=== PATIENT | female | born 1970 | race Caucasian/White ===

== ENCOUNTER → 2016-11-30 | Outpatient (CLI) | payer BC ==
--- NOTE | 2016-12-03 09:44 | MM ---
Reason for exam: follow-up at short interval from prior study. Last mammogram was performed 1 year and 3 months ago. History: Family history of breast cancer in maternal grandmother. Physical Findings: Nurse did not find any significant physical abnormalities on exam. MG 3D Diag Mammo W/Cad SAÚL Bilateral CC and MLO view(s) were taken. Prior study comparison: September 05, 2015, bilateral MG 3d screening mammo w/cad. December 10, 2011, bilateral digital screening mammo w/CAD. There are scattered fibroglandular densities. No significant new findings when compared with previous films. These results were verbally communicated with the patient and result sheet given to the patient on 11/30/16. ASSESSMENT: Benign, BI-RAD 2 RECOMMENDATION: Routine screening mammogram of both breasts in 1 year.
--- NOTE | 2016-12-03 09:47 | USB ---
Reason for exam: follow-up at short interval from prior study. History: Family history of breast cancer in maternal grandmother. US Breast RT Right breast ultrasound includes all four quadrants, the retroareolar region and axilla. Finding demonstrate a 13 x 7mm side by side cyst at 3 o'clock and a 6mm oval, cystic lesion at 8 o'clock. These results were verbally communicated with the patient and result sheet given to the patient on 11/30/16. ASSESSMENT: Benign, BI-RAD 2 RECOMMENDATION: Routine screening mammogram of both breasts in 1 year.
== END | disposition home or self-care (01) ==
LOC: RADMAMWWP 15:17
PROVIDERS: ATTEND Nurse Practitioner
DX: R92.8 Other abnormal and inconclusive findings on diagnostic imaging of breast (principal)
CPT/HCPCS: 76641; G0204; G0279

== ENCOUNTER → 2018-07-25 | Outpatient (CLI) | payer BC ==
--- NOTE | 2018-07-28 12:36 | MM ---
Reason for exam: screening (asymptomatic). Last mammogram was performed 1 year and 8 months ago. History: Family history of breast cancer in maternal grandmother. Physical Findings: A clinical breast exam by your physician is recommended on an annual basis and results should be correlated with mammographic findings. MG 3D Screening Mammo W/Cad Bilateral CC and MLO view(s) were taken. Prior study comparison: November 30, 2016, bilateral MG 3d diag mammo w/cad SAÚL. September 05, 2015, bilateral MG 3d screening mammo w/cad. There are scattered fibroglandular densities. There is increased size of the lobulated lower inner quadrant focal asymmetry at middle depth creating distortion on 3D imaging, this now measures 3.9 x 5.0cm. No suspicious abnormality on left breast. ASSESSMENT: Incomplete: need additional imaging evaluation, BI-RAD 0 RECOMMENDATION: Ultrasound core biopsy and ultrasound of the right breast. [facility] will attempt to contact patient to return for ultrasound.
== END | disposition home or self-care (01) ==
LOC: RADMAMWWP 12:37
PROVIDERS: ATTEND Family Medicine
DX: Z12.31 Encounter for screening mammogram for malignant neoplasm of breast (principal)
CPT/HCPCS: 77063; 77067

== ENCOUNTER → 2018-08-06 | Outpatient (CLI) | payer BC ==
--- NOTE | 2018-08-06 08:00 | USB ---
Reason for exam: additional evaluation requested from abnormal screening. History: Family history of breast cancer in maternal grandmother. Physical Findings: Nurse Summary: all soft, nodular, movable, prominent nodularity 3 o'clock right breast (nurse ts). US Breast Workup RT Right complete breast ultrasound includes all four quadrants, the retroareolar region and axilla. Finding demonstrates a 1.7 x 0.7 x 0.7cm cystic cluster at 3 o'clock, 4.6cm dense tissue with cysts and a 0.7 x 0.6 x 0.2cm oval, cystic lesion at 3 o'clock. These results were verbally communicated with the patient and result sheet given to the patient on 08/06/18. ASSESSMENT: Benign, BI-RAD 2 RECOMMENDATION: Return to routine screening mammogram schedule for both breasts.
== END | disposition home or self-care (01) ==
LOC: RADUSWWP 06:54
PROVIDERS: ATTEND Family Medicine
DX: R92.8 Other abnormal and inconclusive findings on diagnostic imaging of breast (principal)

== ENCOUNTER → 2019-02-16 | Outpatient (CLI) | payer BC ==
--- NOTE | 2019-02-16 08:27 | MR ---
EXAMINATION TYPE: MR brain and iac wo/w con DATE OF EXAM: 02/16/2019 COMPARISON: NONE HISTORY: Dizziness. TECHNIQUE: Multiplanar, multisequence images of the brain and brainstem including internal auditory canals are a ll performed without and with IV contrast, utilizing 10 mL intravenous Gadavist . FINDINGS: Diffusion weighted images demonstrate no evidence of a recent infarct or other diffusion ab normality. There is no extra-axial fluid collection or significant white matter signal abnormality. The ventricular system and cisternal spaces are normal in size and appearance. The brain volume is age appropriate. Asymmetry to the ventricular system with slight right-sided prominence and slight mi dline shift is presumed congenital. Correlation with old outside CT or MRI would be beneficial to con firm. Midline structures demonstrate normal morphology. The craniocervical junction appears within normal limits. Post contrast images demonstrate no abnormal enhancement. The dural venous sinuses appear pa tent. Artifact distortion at level of the globes is seen. Visualized portion of paranasal sinuses are clear. No suspicious opacification of mastoid air cells is present bilaterally. Vestibulocochlear complexes are symmetric and felt within normal limits. No suspicious enhancing mass is present. IMPRESSION: No suspicious finding is seen to account for patient's symptoms of dizziness.
== END | disposition home or self-care (01) ==
LOC: RADMRIMAIN 06:26
PROVIDERS: ATTEND Otolaryngology
DX: R42 Dizziness and giddiness (principal); H90.42 Sensorineural hearing loss, unilateral, left ear, with unrestricted hearing on the contralateral side
CPT/HCPCS: 70553; A9585

== ENCOUNTER → 2020-09-06 | Outpatient (CLI) | payer BC ==
--- NOTE | 2020-09-07 15:06 | MM ---
Reason for exam: screening (asymptomatic). Last mammogram was performed 2 years and 1 month ago. History: Family history of breast cancer in maternal grandmother. Physical Findings: A clinical breast exam by your physician is recommended on an annual basis and results should be correlated with mammographic findings. MG 3D Screening Mammo W/Cad Bilateral CC and MLO view(s) were taken. Prior study comparison: July 25, 2018, bilateral MG 3d screening mammo w/cad. November 30, 2016, bilateral MG 3d diag mammo w/cad SAÚL. The breast tissue is heterogeneously dense. This may lower the sensitivity of mammography. There is chronic nodularity bilaterally. Asymmetric breast tissue right anterior medially, stable. There is no discrete abnormality. ASSESSMENT: Benign, BI-RAD 2 RECOMMENDATION: Routine screening mammogram of both breasts in 1 year.
== END | disposition home or self-care (01) ==
LOC: RADMAMWWP 16:21
PROVIDERS: ATTEND Family Medicine
DX: Z12.31 Encounter for screening mammogram for malignant neoplasm of breast (principal)
CPT/HCPCS: 77063; 77067

== ENCOUNTER → 2022-09-12 | Outpatient (CLI) | payer OTHER ==
--- NOTE | 2022-09-13 20:07 | MM ---
Reason for Exam: Screening (asymptomatic). Last mammogram was performed 2 year(s) and 0 month(s) ago. Patient History: Menarche at age 13. First Full-Term at age 19. Postmenopausal. Maternal grandmother had breast cancer, age 74. Risk Values: Bee 5 year model risk: 0.9%. NCI Lifetime model risk: 7.1%. Prior Study Comparison: 11/30/2016 Bilateral Diagnostic Mammogram, [facility]. 07/25/2018 Bilateral Screening Mammogram, [facility]. 09/06/2020 Bilateral Screening Mammogram, [facility]. Tissue Density: The breast tissue is heterogeneously dense. This may lower the sensitivity of mammography. Findings: Analyzed By CAD. Unchanged global asymmetry medial right breast. No significant change from prior exams. Overall Assessment: Benign, BI-RAD 2 Management: Screening Mammogram of both breasts in 1 year. 1. Patient should continue monthly self breast exams. 2. A clinical breast exam by your physician is recommended on an annual basis. 3. This exam should not preclude additional follow-up of suspicious palpable abnormalities. Electronically signed and approved by: Maddie Mott M.D. Radiologist
== END | disposition home or self-care (01) ==
LOC: RADMAMWWP 15:51
PROVIDERS: ATTEND Family Medicine
DX: Z12.31 Encounter for screening mammogram for malignant neoplasm of breast (principal); Z78.0 Asymptomatic menopausal state; Z80.3 Family history of malignant neoplasm of breast
CPT/HCPCS: 77063; 77067

== ENCOUNTER 2022-11-21 13:23 | Day surgery (SDC) | payer OTHER ==
[2022-11-16 16:22] VITALS: BMI 41.5
[~2022-11-21 13:23] MED LIST: ACETAMINOPHEN TAB 500 MG TAB PO PRN; DEXAMETHASONE SOD PHOSPHATE 10 MG/ML 1 ML VIAL IV PRN; DOCUSATE 100 MG CAP PO PRN; FAMOTIDINE 20 MG/2 ML VIAL IVP PRN; KETOROLAC 15 MG/ML 1 ML VIAL IVP PRN; ONDANSETRON 4 MG/2 ML VIAL IVP PRN; TRANEXAMIC ACID IN NACL,ISO-OS 1,000 MG in SALINE 1 100ML.BAG IV PRN; TRANEXAMIC ACID IN NACL,ISO-OS 1,000 MG in SALINE 1 100ML.BAG IVPB PRN; oxyCODONE ER 10 MG TAB.ER.12H PO PRN
[2022-11-21] MEDS ORDERED: LIDOCAINE 1% (10MG/ML) FOR IV START INTRADERMA PRN (13:34)
[2022-11-21] MEDS ORDERED: HYDROmorphone 0.5 MG/0.5 ML SYRINGE IVP PRN ×2 (13:34→18:14)
[2022-11-21] MEDS: LACTATED RINGERS 1,000 ML IV SCH (13:58)
[2022-11-21] MEDS ORDERED: SCOPOLAMINE 1 MG/72 HR PATCH TRANSDERM ONE (14:16)
[2022-11-21] MEDS ORDERED: MIDAZOLAM 2 MG/2 ML VIAL IVP ONE (14:23)
[2022-11-21] MEDS ORDERED: PROPOFOL 10 MG/ML 20 ML VIAL IV ONE (15:46)
[2022-11-21] MEDS ORDERED: MIDAZOLAM 2 MG/2 ML VIAL ONE (15:46)
[2022-11-21] MEDS ORDERED: HYDROmorphone (PF) 1 MG/ML ONE (15:46)
[2022-11-21] MEDS ORDERED: LIDOCAINE 2% INJ 20 MG/ML (2 ML VIAL) ONE (15:46)
[2022-11-21] MEDS ORDERED: DEXAMETHASONE SOD PHOSPHATE 4 MG/ML 1 ML VIAL ONE (15:46)
[2022-11-21] MEDS ORDERED: ROCURONIUM 10 MG/ML (5 ML VIAL) IV ONE (15:46)
[2022-11-21] MEDS ORDERED: ROPIVACAINE 5 MG/ML 30 ML VIAL ONE (15:46)
[2022-11-21] MEDS ORDERED: GLYCOPYRROLATE 0.2 MG/ML 2 ML VIAL ONE (15:46)
[2022-11-21] MEDS ORDERED: NEOSTIGMINE 1 MG/ML 10 ML VIAL ONE (15:46)
[2022-11-21] MEDS ORDERED: SUCCINYLCHOLINE CHLORIDE 200 MG/10 ML VIAL IV ONE (15:46)
[2022-11-21] MEDS ORDERED: KETAMINE 10 MG/ML 20 ML VIAL ONE (15:46)
[2022-11-21] MEDS ORDERED: fentaNYL (PF) 50 MCG/ML 2 ML AMP ONE (15:46)
[2022-11-21] MEDS ORDERED: TRANEXAMIC ACID IN NACL,ISO-OS 1,000 MG/100 ML BAG ONE (15:46)
[2022-11-21] MEDS: ROPIVACAINE/EPI/CLONIDINE/KET 50 ML SYRINGE MISCELLANE PRN ×3 (16:29→17:32)
--- NOTE | 2022-11-21 16:44 | P.ANPRN ---
Procedure Note - Anesthesia - Nerve Block Performed Right Adductor Canal Single Time Out Performed: Yes Date of Procedure: 11/21/22 Procedure Start Time: 14:43 Procedure Stop Time: 15:00 Location of Patient: PreOp Indication: Acute Post-Operative Pain, Requested by Surgeon Sedation Type: Sedate with meaningful contact maintained Preparation: Sterile Prep, Sterile Dressing Position: Supine Catheter: None Needle Types: Facet Needle Gauge: 20 Ultrasound used to visualize needle placement: Yes Ultrasound used to observe medication spread: Yes Injectate: 0.5% Ropivacaine (see comment for volume) (20 ml + 2 mg Decadron) Blood Aspirated: No Pain Paresthesia on Injection Noted: No Resistance on Injection: Normal Image Stored and Saved: Yes Events: Uneventful and Well Tolerated Right iPack Single Time Out Performed: Yes Date of Procedure: 11/21/22 Procedure Start Time: 15:01 Procedure Stop Time: 15:10 Location of Patient: PreOp Indication: Acute Post-Operative Pain, Requested by Surgeon Sedation Type: Sedate with meaningful contact maintained Preparation: Sterile Prep, Sterile Dressing Position: Left Lateral Catheter: None Needle Types: Facet Needle Gauge: 20 Ultrasound used to visualize needle placement: Yes Ultrasound used to observe medication spread: Yes Injectate: 0.5% Ropivacaine (see comment for volume) (10 ml + decadron 2 mg) Blood Aspirated: No Pain Paresthesia on Injection Noted: No Resistance on Injection: Normal Image Stored and Saved: Yes Events: Uneventful and Well Tolerated
[2022-11-21] MEDS ORDERED: LACTATED RINGERS 1,000 ML IV ONE (17:05)
[2022-11-21] MEDS ORDERED: HYDROcodone/APAP 5-325MG 1 EACH TAB PO PRN (18:14)
[2022-11-21] MEDS ORDERED: NALOXONE 0.4 MG/ML 1 ML VIAL IV PRN (18:14)
[2022-11-21] MEDS ORDERED: MAGNESIUM HYDROXIDE 2,400 MG/10 ML CUP PO PRN (18:14)
[2022-11-21] MEDS ORDERED: NA PHOS,M-B/NA PHOS,DI-BA 133 ML ENEMA RECTAL PRN (18:14)
[2022-11-21] MEDS ORDERED: HYDROmorphone 1 MG/ML 1 ML SYRINGE IVP PRN (18:14)
[2022-11-21] MEDS ORDERED: ONDANSETRON 4 MG/2 ML VIAL IVP PRN (18:14)
--- NOTE | 2022-11-21 18:16 | P.OP ---
Date of Procedure: 11/21/22 Preoperative Diagnosis: 1. Severe right knee osteoarthritis 2. BMI 42.6 Postoperative Diagnosis: Same Procedure(s) Performed: Right total knee arthroplasty Implants: 1. [place] Tri[employer]lon CR Femur Size #2 2. [employer] [place] Tibial Base Size #3 3. [place] Tri[employer]lon CS poly Size #9 4. [place] Tri[employer]lon all poly patella, Size #29 Anesthesia: MARY, regional Surgeon: Benji Aquino Transportation Worker #1: Keyonna Dimas Estimated Blood Loss (ml): 100 IV fluids (ml): 1,200 Pathology: none sent Condition: stable Disposition: PACU Indications for Procedure: I met with the patient preoperatively in the office setting and discussed treatment of their symptomatic knee arthritis. They failed a long course of nonsurgical treatment and elected to proceed with an elective total knee replacement. I discussed the potential risks and complications at length and gave them ample time to ask questions. Risks discussed included: risks from anesthesia, superficial site surgical infection, acute and/or chronic periprosthetic joint infection, delayed wound healing, drainage, wound necrosis, instability, stiffness, stiffness requiring manipulation and/or revision surgery, damage to local blood vessels or nerves, aseptic loosening of the implants, extensor mechanism issues including disruption, patellar maltracking, avascular necrosis etc., continued or worsened knee pain, generalized dissatisfaction with surgical outcome, need for revision surgery, an inability to regain preinjury level of function, DVT, PE, other medical complications, and possibly loss of life or limb. The patient voiced their understanding that while these are the most common complications other less common complications are possible. They provided both their verbal and written consent to go forward with surgery. Description of Procedure: The patient was identified in preoperative holding and the correct operative extremity was verified and marked with a marker. I reviewed the consent form with the patient at length. All of their questions were answered. The patient was given a block by anesthesia. They were then brought back to the operating room. They were transferred onto the operating room table where a general anesthetic, preoperative antibiotics, and tranexamic acid were administered by anesthesia. A tourniquet was applied to the proximal aspect of the operative extremity. The contralateral extremity was padded under the heel and secured to the operating room table with a nonsterile blue towel and tape. The ipsilateral arm was carefully draped across the patient's chest and secured with a pillow and foam. A post was applied over the lateral aspect of the ipsilateral thigh and a bolster was placed under the ipsilateral foot. I verified that the operative extremity was stable and the knee was flexed to 90. The operative extremity was then placed in a leg harry, nonsterile drapes were applied, and the extremity was prepped and draped sterilely in the standard sterile fashion. Prior to starting surgery timeout was performed identifying the correct patient, operative extremity, and procedure. The leg was then elevated, exsanguinated with an Esmarch bandage, and the tourniquet was inflated. An anterior midline incision was made sharply with a scalpel. Once I had dissected deep to the superficial fascial layer medial and lateral flaps were elevated. A medial parapatellar arthrotomy was created. Upon opening the knee joint there were diffuse arthritic changes in all 3 compartments. The anterior horn of the medial meniscus were sharply released and a medial release was performed around the posterior medial corner of the knee to facilitate retractor placement. The fat pad was excised with electrocautery. The patella was found to be severely arthritic and a provisional cut was made with a sagittal saw to facilitate mobilization of the extensor mechanism during the procedure. Remnants of the ACL and PCL were then excised from the notch. 4 mm pins were then placed within the incision in the medial distal femur and proximal tibia. Arrays were applied to the pins and I verified they were completely tightened. The knee was then registered with the Light Magic robot and manipulations in implant position were made to balance the knee and opitmize implant position. Using the Raphael robotic saw all cuts were made in accordance with our plan. After all bony fragments had been removed the cuts were verified with the planar probe. The tibia was then subluxed forward and sized. The knee was brought into flexion and a lamina electrical project manager was placed to allow removal of the meniscal remnants both medially and laterally as well as posterior osteophytes. Local anesthetic was then infiltrated around the joint capsule. Trial implants were then placed within the knee. Range of motion and collateral ligament tension was then evaluated. Adjustments in implant size and position were then made accordingly. Once the knee was felt to be appropriately balanced the Raphael pins were removed. The patella was then recut, sized, and punched. A trial patellar button was then placed. With the trial components in place, the patella tracked midline. The femur was then drilled and the trial component removed. The trial tibial component was then appropriately rotated, pinned, and prepared for the keel. All trial components were then removed from the knee. The knee was thoroughly irrigated with pulsatile lavage. Cement was prepared via vacuum mixing in a bowl on the back table. I then hand pressurized cement into the femur and tibia and placed the implants beginning with the tibial base tray and poly liner, femoral component, and finally the patellar button. All extruded cement was removed including from the pin sites. Once the cement had hardened the knee was evaluated one final time with the final polyethylene liner in place. The knee had full extension and flexion and felt stable to varus and valgus stress throughout the arc of motion. The tourniquet was released and with the tourniquet down the patella tracked midline. All bleeders were controlled with electrocautery. The knee was then soaked for 3 minutes with a dilute Betadine soak. The knee was thoroughly irrigated using 3 L of sterile saline and pulsatile lavage. The extensor mechanism was then reapproximated using pop off Vicryl sutures followed by a running barbed suture. The knee was then closed in layers with a 0 strata fix for the deep fascial layer, 2-0 strata fix for the superficial subcutaneous layer and Monocryl and Steri-Strips for the skin. A sterile dressing was applied. I verified that all instrument, sponge, and sharp counts were correct. The patient was then transferred off the operating room table, extubated, and brought to recovery having tolerated the procedure well. Keyonna Dimas NP was required as a skilled orthodontist assistant due to the complexity of the procedure for patient positioning, draping, retraction, placement of sawant rdware, and closure of wound. PLAN: The patient can weight-bear as tolerated on the operative extremity. DVT prophylaxis with aspirin 81 mg twice a day based on preoperative risk stratification. Follow-up in the office in 2 weeks for wound check and x-rays of the knee including an AP and lateral.
--- NOTE | 2022-11-21 19:01 | XR ---
EXAMINATION TYPE: XR knee limited RT DATE OF EXAM: 11/21/2022 6:46 PM INDICATION: Patient age:Female; 52 years old; Reason for study: Evaluation for Postop abnormality and alignment; COMPARISON: None. TECHNIQUE: The Right knee(s) was examined in Frontal, lateral projections. FINDINGS: Status post total knee arthroplasty changes with hardware in appropriate alignment and in tact. No evidence of fracture. Subcutaneous lucencies and lucencies within the joint consistent with surgical changes. IMPRESSION: Status post total knee arthroplasty changes with hardware intact and appropriate alignment. No fractu res identified.
[2022-11-21] MEDS: ASPIRIN 81 MG PO SCH (21:41)
[2022-11-21] MEDS: SENNOSIDES-DOCUSATE SODIUM 1 EACH TAB PO SCH (21:41)
[2022-11-21] MEDS: HYDROmorphone 0.5 MG/0.5 ML SYRINGE IVP PRN (21:42)
[2022-11-21] MEDS: HYDROcodone/APAP 5-325MG 1 EACH TAB PO PRN (23:35)
[2022-11-21] MEDS: POLYMYXIN B-TRIMETHOPRIM SULF (10,000-1) OPHTH DROPS 10 ML BTL RIGHT EYE SCH (23:36)
[2022-11-22] MEDS: POLYMYXIN B-TRIMETHOPRIM SULF (10,000-1) OPHTH DROPS 10 ML BTL RIGHT EYE SCH ×5 (03:29→21:03)
[2022-11-22] MEDS: HYDROmorphone 0.5 MG/0.5 ML SYRINGE IVP PRN ×4 (03:40→21:03)
[2022-11-22] MEDS: HYDROcodone/APAP 5-325MG 1 EACH TAB PO PRN ×3 (06:54→22:08)
[2022-11-22] MEDS: ASPIRIN 81 MG PO SCH ×2 (09:00→21:03)
--- NOTE | 2022-11-22 09:37 | P.DS ---
Providers Expected date of discharge: 11/22/22 Attending physician: Benji Aquino Consults: 11/21/22 18:14 Consult Physician Routine Consulting Provider: Matt Kruger Consult Reason/Comments: medical management Do you want consulting provider notified?: Yes Primary care physician: Valerie Young [facility] Course: This is a 52-year-old female who has been followed in our office by Dr. Aquino for continued complaints of right knee pain due to right knee osteoarthritis. Treatment options were discussed, and patient elected to undergo a right total knee arthroplasty. Patient was seen pre-operatively by Dr. Young and cleared for surgery. Patient underwent a right total knee arthroplasty on 11/21/[address] Aquino. The procedure was performed without complication or sequelae. The patient is doing fairly well postoperatively. Vital signs and labs are stable on postoperative day #1. Patient was examined bedside this morning with Dr. Aquino. Patient states she is overall doing very well and the pain in the right knee is well-controlled. She has been ambulating with a walker with minimal assistance. Patient will work with physical therapy prior to discharge. Patient is comfortable being discharged home today. Patient has no new complaints this morning. On examination, the patient is sitting up in bed in no apparent distress. She is alert and orientated 3. On inspection of the right knee, there is Opsite surgical dressing that is saturated in blood. Dressing is removed and reveals a well-approximated incision. Patient has good strength and ROM of the right ankle and toes. Motor and sensory function is intact of the right lower extremity. The dorsalis pedis pulse is easily palpable, the right lower extremity is warm and well perfused with brisk capillary refill. Calf is soft and non-tender to palpation. Due to drainage and saturated surgical dressing, we elected to place a Prevena wound vac bedside this morning. Patient tolerated this dressing change well. Patient is discharged home with home health care today in good condition, pending medical clearance. Patient will follow-up with Dr. Aquino in the office in 1 week for wound vac removal. Please see med rec for accurate list of discharge medication. Plan - Discharge Summary Discharge Rx Participant: Yes New Discharge Prescriptions: New Aspirin 81 mg PO BID 30 Days #60 tab Docusate [Colace] 100 mg PO BID #60 capsule HYDROcodone/APAP 5-325MG [[place] 5-325] 1 - 2 tab PO Q6HR PRN 7 Days #32 tab PRN Reason: Pain Omeprazole 40 mg PO DAILY 30 Days #30 cap Diclofenac Sodium [Voltaren] 75 mg PO BID 30 Days #60 tab Doxycycline Monohydrate 100 mg PO BID 14 Days #28 cap No Action Venlafaxine HCl [Effexor XR] 150 mg PO DAILY Omeprazole 20 mg PO DAILY Cyanocobalamin (Vitamin B-12) [Vitamin B-12] 1,000 mcg PO DAILY Fluticasone Propion/Salmeterol [Wixela 250-50 Inhub] 1 inhalation PO BID hydroCHLOROthiazide [Hydrodiuril] 25 mg PO DAILY busPIRone HCL 15 mg PO BID Albuterol Sulfate [Proair Digihaler] 1 puff INHALATION Q6H PRN PRN Reason: Wheezing Albuterol Nebulized [Ventolin Nebulized] 2.5 mg INHALATION TID PRN PRN Reason: Shortness Of Breath Potassium Gluconate 99 mg PO DAILY Discharge Medication List Albuterol Nebulized [Ventolin Nebulized] 2.5 mg INHALATION TID PRN 11/16/22 [History] Albuterol Sulfate [Proair Digihaler] 1 puff INHALATION Q6H PRN 11/16/22 [History] Cyanocobalamin (Vitamin B-12) [Vitamin B-12] 1,000 mcg PO DAILY 11/16/22 [History] Fluticasone Propion/Salmeterol [Wixela 250-50 Inhub] 1 inhalation PO BID 11/16/22 [History] Omeprazole 20 mg PO DAILY 11/16/22 [History] Potassium Gluconate 99 mg PO DAILY 11/16/22 [History] Venlafaxine HCl [Effexor XR] 150 mg PO DAILY 11/16/22 [History] busPIRone HCL 15 mg PO BID 11/16/22 [History] hydroCHLOROthiazide [Hydrodiuril] 25 mg PO DAILY 11/16/22 [History] Aspirin 81 mg PO BID 30 Days #60 tab 11/22/22 [Rx] Diclofenac Sodium [Voltaren] 75 mg PO BID 30 Days #60 tab 11/22/22 [Rx] Docusate [Colace] 100 mg PO BID #60 capsule 11/22/22 [Rx] Doxycycline Monohydrate 100 mg PO BID 14 Days #28 cap 11/22/22 [Rx] HYDROcodone/APAP 5-325MG [[place] 5-325] 1 - 2 tab PO Q6HR PRN 7 Days #32 tab 11/22/22 [Rx] Omeprazole 40 mg PO DAILY 30 Days #30 cap 11/22/22 [Rx] Follow up Appointment(s)/Referral(s): [facility], [NON-STAFF] - 1-2 Days ([facility] will call you to schedule your in home physical therapy visits. ) Benji Aquino MD [Medical Doctor] - 11/29/22 Activity/Diet/Wound Care/Special Instructions: Weight bear to tolerance on operative extremity with a walker. Keep Prevena wound vac in place until follow-up in the office. Do not remove. Take pain medications as needed. Take aspirin 81mg twice a day for blood clot prevention. Take antibiotics as prescribed until gone. Follow-up in the office at [facility] in one week, on 11/29/22. Call the office with any questions or concerns, Discharge Disposition: HOME WITH HOME HEALTH SERVICES
[2022-11-22 10:42] LABS: Basophils # (A) 0.03 X 10*3/uL (0.00-0.10); Basophils % (A) 0.2 %; Eosinophils # (A) 0 X 10*3/uL (0.04-0.35); Eosinophils % (A) 0 %; HCT 35.5 % (37.2-46.3); HGB 11.3 g/dL (12.0-15.0); Immature Grans, Automated 0.6 %; Lymphocytes # (A) 1.58 X 10*3/uL (0.90-5.00); Lymphocytes % (A) 8.3 %; MCH 29.8 pg (27.0-32.0); MCHC 31.8 g/dL (32.0-37.0); MCV 93.7 fL (80.0-97.0); Mean Platelet Volume 10.6 fL (9.5-12.2); Monocytes # (A) 0.58 X 10*3/uL (0.20-1.00); NRBC Per 100 WBC 0 /100 WBCS (0.0-0.0); Neutrophils # (A) 16.76 X 10*3/uL (1.80-7.70); Neutrophils % (A) 87.9 %; Platelet Count 280 X 10*3/uL (140-440); RBC 3.79 X 10*6/uL (4.10-5.20); WBC 19.06 X 10*3/uL (4.50-10.00)
--- NOTE | 2022-11-22 12:07 | P.CONS ---
History of Present Illness - History of Present Illness This is a pleasant 52 years old female with multiple medical problems including GERD/Reflux, Hypertension, Osteoarthritis, Anxiety Patient was admitted for right knee arthroplasty. Patient also complaining of from redness and itchiness and watery discharge from her right eye with no blurred vision or double vision when I examined the patient, most likely patient has right eye conjunctivitis and patient was already started on polymyxin-trimethoprim antibiotic eyedrops. Recommend close monitoring for any vision changes or worsening pain. Patient currently denies any pain in the area. pt also would benefit from ophthalmologic exam , patient informed and she agrees. This can be done as an outpatient since patient is pain free and without blurred vision and she was informed if she develops any symptoms to see emergent medical attention and she agrees. Other than that she denies any chest pain or dyspnea, no abdominal pain or vomiting. No diarrhea. Patient does not have bowel movement. He The right knee pain is controlled. Patient. Vital signs stable and patient is afebrile. Blood pressure 106/65. cbc showing mild leukocytosis of 19.0 which could be explained by surgical stress effect. (11.3. Review of Systems Review of systems CONSTITUTIONAL: No fever, no malaise, no fatigue. -HEENT: No recent visual problems or hearing problems. Denied any sore throat. Patient is in her right thigh as above CARDIOVASCULAR: No orthopnea, PND, no palpitations, no syncope. PULMONARY: No shortness of breath, no cough, no hemoptysis. GASTROINTESTINAL: No diarrhea, no nausea, no vomiting, no abdominal pain. Normoactive bowel sounds. NEUROLOGICAL: No headaches, no weakness, no numbness. HEMATOLOGICAL: Denies any bleeding or petechiae. GENITOURINARY: Denies any burning micturition, frequency, or urgency. MUSCULOSKELETAL/RHEUMATOLOGICAL: Denies any joint pain, swelling, or any muscle pain. ENDOCRINE: Denies any polyuria or polydipsia. Past Medical History Past Medical History: Asthma, GERD/Reflux, Hypertension, Osteoarthritis (OA) History of Any Multi-Drug Resistant Organisms: None Reported Past Surgical History: Joint Replacement Additional Past Surgical History / Comment(s): LT ZI. BILAT BONE SPURS REMOVED FROM FEET Past Anesthesia/Blood Transfusion Reactions: Postoperative Nausea & Vomiting (PONV) Additional Past Anesthesia/Blood Transfusion Reaction / Comm: WAKES UP VERY EMOTIONAL Past Psychological History: Anxiety Smoking Status: Never smoker Past Alcohol Use History: Occasional Past Drug Use History: None Reported - Past Family History Mother Family Medical History: No Reported History Medications and Allergies Home Medications Medication Instructions Recorded Confirmed Type Albuterol Nebulized [Ventolin 2.5 mg INHALATION TID PRN 11/16/22 11/16/22 History Nebulized] Albuterol Sulfate [Proair 1 puff INHALATION Q6H PRN 11/16/22 11/16/22 History Digihaler] Cyanocobalamin (Vitamin B-12) 1,000 mcg PO DAILY 11/16/22 11/16/22 History [Vitamin B-12] Fluticasone Propion/Salmeterol 1 inhalation PO BID 11/16/22 11/16/22 History [Wixela 250-50 Inhub] Omeprazole 20 mg PO DAILY 11/16/22 11/16/22 History Potassium Gluconate 99 mg PO DAILY 11/16/22 11/16/22 History Venlafaxine HCl [Effexor XR] 150 mg PO DAILY 11/16/22 11/16/22 History busPIRone HCL 15 mg PO BID 11/16/22 11/16/22 History hydroCHLOROthiazide [Hydrodiuril] 25 mg PO DAILY 11/16/22 11/16/22 History Aspirin 81 mg PO BID 30 Days #60 tab 11/22/22 Rx Diclofenac Sodium [Voltaren] 75 mg PO BID 30 Days #60 tab 11/22/22 Rx Docusate [Colace] 100 mg PO BID #60 capsule 11/22/22 Rx Doxycycline Monohydrate 100 mg PO BID 14 Days #28 cap 11/22/22 Rx HYDROcodone/APAP 5-325MG [[place] 1 - 2 tab PO Q6HR PRN 7 Days #32 11/22/22 Rx 5-325] tab Omeprazole 40 mg PO DAILY 30 Days #30 cap 11/22/22 Rx Allergies Allergy/AdvReac Type Severity Reaction Status Date / Time escitalopram [From Lexapro] Allergy INCREASED Verified 11/21/22 13:37 ANXIETY, EMOTIONAL Physical Exam Vitals: Vital Signs Temp Pulse Resp BP Pulse Ox 11/22/22 08:16 95 11/22/22 07:08 99.0 F 83 17 106/65 95 11/22/22 02:00 99.2 F 96 17 146/80 93 L 03/22/23 21:55 102 H 129/68 96 11/21/22 21:40 92 123/70 94 L 11/21/22 21:25 90 129/79 93 L 11/21/22 21:10 94 105/68 94 L 11/21/22 20:55 101 H 148/83 98 11/21/22 20:40 93 142/81 98 11/21/22 20:25 103 H 134/76 94 L 11/21/22 20:10 102 H 145/76 96 11/21/22 19:55 97.9 F 99 143/77 93 L 11/21/22 19:29 105 H 16 159/78 96 11/21/22 19:14 98 16 166/82 94 L 11/21/22 18:59 104 H 16 150/65 93 L 11/21/22 18:44 97 16 146/73 95 11/21/22 18:29 92 16 145/71 95 11/21/22 18:14 97.3 F L 98 16 146/69 92 L 11/21/22 14:41 89 16 151/74 97 11/21/22 13:55 98.6 F 92 16 160/97 94 L Intake and Output 11/21/22 11/22/22 11/22/22 22:59 06:59 14:59 Intake Total 1300 Output Total 100 Balance 1200 Intake: IV 1300 Output: Estimated Blood Loss 100 Other: Voiding Method Toilet Toilet # Voids 1 Weight 116.1 kg GENERAL: The patient is alert and oriented x3, not in any acute distress. Well developed, well nourished. -HEENT: Pupils are round and equally reacting to light. EOMI. No scleral icterus. No conjunctival pallor. Normocephalic, atraumatic. No pharyngeal erythema. No thyromegaly. right eye: redness and watery discharge of the right eye, no loss of vision , no painful eye movement, no blurred vission , no double vision CARDIOVASCULAR: S1 and S2 present. No murmurs, rubs, or gallops. PULMONARY: Chest is clear to auscultation, no wheezing or crackles. ABDOMEN: Soft, nontender, nondistended, normoactive bowel sounds. No palpable organomegaly. MUSCULOSKELETAL: No joint swelling or deformity. -EXTREMITIES: No cyanosis, clubbing, or pedal edema. Right knee surgical wound with this in place, deferred to surgery NEUROLOGICAL: Gross neurological examination did not reveal any focal deficits. SKIN: No rashes. no petechiae. Results CBC & Chem 7: 11/22/22 06:57 Labs: Abnormal Lab Results - Last 24 Hours (Table) 11/22/22 Range/Units 06:57 WBC 19.06 H (4.50-10.00) X 10*3/uL RBC 3.79 L (4.10-5.20) X 10*6/uL Hgb 11.3 L (12.0-15.0) g/dL Hct 35.5 L (37.2-46.3) % MCHC 31.8 L (32.0-37.0) g/dL RDW 15.0 H (11.5-14.5) % Immature Gran # 0.11 H (0.00-0.04) X 10*3/uL Neutrophils # 16.76 H (1.80-7.70) X 10*3/uL Eosinophils # 0 L (0.04-0.35) X 10*3/uL Assessment and Plan Assessment: Right knee osteoarthritis status post total knee arthroplasty conjunctivitis is without blurred vision History of GERD Hypertension Osteoarthritis Asthma, not in activation Plan: Continue with polymyxin trimethoprim antibiotic Monitor for any change in vision closely. Patient may benefit from ophthalmology evaluation. This can be done as an outpatient if patient with no blurred vision or painful eye movements. Patient was educated about the symptoms with recommendation to seek emergent medical attention if she develops any blurred vision or double vision or increasing pain in the right eye and she verbalized understanding and acceptance Continue with postoperative care with pain and PPH thrombosis prophylaxis as per surgery primary team Labs and medication were reviewed.. Continue same treatment. Continue with symptomatic treatment. Resume home medication. Monitor labs and vitals. DVT and GI prophylaxis per surgical team. Further recommendations as per clinical course of the patient Thank you for consulting us
[2022-11-22] MEDS: SENNOSIDES-DOCUSATE SODIUM 1 EACH TAB PO SCH (21:02)
[2022-11-22] MEDS: DOXYCYCLINE 100 MG CAP PO SCH (22:08)
[2022-11-23] MEDS: LACTATED RINGERS 1,000 ML IV SCH ×2 (00:42→15:54)
[2022-11-23] MEDS: POLYMYXIN B-TRIMETHOPRIM SULF (10,000-1) OPHTH DROPS 10 ML BTL RIGHT EYE SCH ×7 (02:14→23:53)
[2022-11-23] MEDS: HYDROcodone/APAP 5-325MG 1 EACH TAB PO PRN ×2 (06:17→13:54)
[2022-11-23] MEDS: ASPIRIN 81 MG PO SCH ×2 (07:59→20:07)
[2022-11-23] MEDS: DOXYCYCLINE 100 MG CAP PO SCH ×2 (07:59→20:07)
[2022-11-23] MEDS: HYDROmorphone 0.5 MG/0.5 ML SYRINGE IVP PRN ×2 (07:59→12:42)
--- NOTE | 2022-11-23 08:13 | P.PN ---
Subjective Patient is doing well. She stayed an extra night due to a corneal abrasion and patient request for an ophthalmology consult. This morning she continues to have discomfort in her right eye. Her nerve block is also wearing off and she describes burning pain in her knee. Objective - Vital Signs Vital signs: Vital Signs Temp 99.1 F 11/23/22 07:07 Pulse 71 11/23/22 07:07 Resp 16 11/23/22 07:07 BP 132/70 11/23/22 07:07 Pulse Ox 89 L 11/23/22 07:07 FiO2 Intake & Output 11/22/22 11/23/22 11/23/22 18:59 06:59 18:59 Other: Voiding Method Toilet Toilet # Voids 3 2 1 - Exam The patient is resting comfortably in bed. A focused examination of the right lower extremity was conducted. There is an Camacho wrap over the leg which was removed. On inspection there is an incisional wound VAC in place with a good seal. There is a small amount of blood in the tubing but no active drainage. Her thigh and calf are soft. He is able to actively plantarflex and dorsiflex her toes and ankle. - Labs CBC & Chem 7: 11/22/22 06:57 Labs: Abnormal Lab Results - Last 24 Hours (Table) 11/22/22 Range/Units 06:57 WBC 19.06 H (4.50-10.00) X 10*3/uL RBC 3.79 L (4.10-5.20) X 10*6/uL Hgb 11.3 L (12.0-15.0) g/dL Hct 35.5 L (37.2-46.3) % MCHC 31.8 L (32.0-37.0) g/dL RDW 15.0 H (11.5-14.5) % Immature Gran # 0.11 H (0.00-0.04) X 10*3/uL Neutrophils # 16.76 H (1.80-7.70) X 10*3/uL Eosinophils # 0 L (0.04-0.35) X 10*3/uL Assessment and Plan Assessment: Postoperative day #2 status post right total knee replacement Corneal abrasion Plan: Continue treatment as outlined yesterday. Due to bleeding and saturation of the dressing yesterday an incisional wound VAC was placed. The dressing appears intact today with good seal. Awaiting evaluation by ophthalmology and then the patient can likely discharge home today once he passes therapy. She will need follow-up in the office in 1 week for a wound check and wound VAC removal. Due to her BMI of 42.6 and drainage yesterday I would also like to place her on low-dose suppressive antibiotics until her incision heals.
[2022-11-23] MEDS: oxyCODONE-APAP 5-325MG 1 EACH TAB PO PRN (18:46)
[2022-11-23] MEDS: SENNOSIDES-DOCUSATE SODIUM 1 EACH TAB PO SCH (20:07)
--- NOTE | 2022-11-23 23:24 | P.PN ---
Subjective Progress Note Date: 11/23/22 This is a pleasant 52 years old female with multiple medical problems including GERD/Reflux, Hypertension, Osteoarthritis, Anxiety Patient was admitted for right knee arthroplasty. Patient also complaining of from redness and itchiness and watery discharge from her right eye with no blurred vision or double vision when I examined the patient, most likely patient has right eye conjunctivitis and patient was already started on polymyxin-trimethoprim antibiotic eyedrops. Recommend close monitoring for any vision changes or worsening pain. Patient currently denies any pain in the area. pt also would benefit from ophthalmologic exam , patient informed and she agrees. This can be done as an outpatient since patient is pain free and without blurred vision and she was informed if she develops any symptoms to see emergent medical attention and she agrees. Other than that she denies any chest pain or dyspnea, no abdominal pain or vomiting. No diarrhea. Patient does not have bowel movement. He The right knee pain is controlled. Patient. Vital signs stable and patient is afebrile. Blood pressure 106/65. cbc showing mild leukocytosis of 19.0 which could be explained by surgical stress effect. (11.3. 11/23/2022 Patient is seen in follow-up this morning status post right knee arthroplasty with orthopedics following closely. Patient is having some right eye drainage and noted crusting on exam and was started on Polytrim drops and will continue. Patient also having some increased right knee pain with difficulty managing pain at this time. Patient is afebrile denies chest pain or shortness of breath. No reports of nausea or vomiting and patient is tolerating diet. Patient does have follow-up appointment made with legal billing specialist in the outpatient setting for this week. Would recommend to continue with eyedrops to bilateral eyes and encouraged increased handwashing and avoiding Rubbing or scratching at the eye. Review of systems: Constitutional: No reports of fatigue, fever, or chills Cardiovascular: No reports of chest pain or palpitations Respiratory: No reports of shortness of breath or cough GI: No reports of nausea, vomiting, or diarrhea : No reports of dysuria or retention Neurovascular: No reports of weakness or numbness All medications have been reviewed Active Medications Aspirin (Aspirin 81 Mg) 81 mg PO BID STEVE Stop: 12/21/22 21:01 Last Admin: 11/23/22 20:07 Dose: 81 mg Doxycycline Monohydrate (Doxycycline 100 Mg Cap) 100 mg PO BID [facility]; Protocol Last Admin: 11/23/22 20:07 Dose: 100 mg Hydromorphone HCl (Hydromorphone 0.5 Mg/0.5 Ml Syringe) 0.5 mg IVP Q3HR PRN PRN Reason: Pain Scale 4 to 6 Stop: 12/21/22 18:15 Last Admin: 11/23/22 12:42 Dose: 0.5 mg Hydromorphone HCl (Hydromorphone 1 Mg/Ml 1 Ml Syringe) 1 mg IVP Q3HR PRN PRN Reason: Pain Scale 7 to 10 Stop: 12/21/22 18:15 Last Admin: 11/23/22 03:11 Dose: 1 mg Hydromorphone HCl (Hydromorphone 0.5 Mg/0.5 Ml Syringe) 0.25 mg IVP Q3HR PRN PRN Reason: Pain Scale 1 to 3 Stop: 12/21/22 18:15 Lactated Ringer's (Lactated Ringers) 1,000 mls @ 20 mls/hr IV .Q24H [facility] Stop: 12/21/22 13:35 Last Admin: 11/23/22 15:54 Dose: Not Given Lidocaine HCl (Lidocaine 1% (10mg/Ml) For Iv Start) 0.1 ml INTRADERMA PER PROTOCOL PRN PRN Reason: IV Start Stop: 12/21/22 13:35 Magnesium Hydroxide (Magnesium Hydroxide 2,400 Mg/10 Ml Cup) 2,400 mg PO DAILY PRN PRN Reason: Constipation Stop: 12/21/22 18:15 Naloxone HCl (Naloxone 0.4 Mg/Ml 1 Ml Vial) 0.2 mg IV Q2M PRN PRN Reason: Opioid Reversal Stop: 12/21/22 18:15 Ondansetron HCl (Ondansetron 4 Mg/2 Ml Vial) 4 mg IVP Q8HR PRN PRN Reason: Nausea And Vomiting Stop: 12/21/22 18:15 Oxycodone/Acetaminophen (Oxycodone-Apap 5-325mg 1 Each Tab) 1 each PO Q6HR PRN PRN Reason: Pain Last Admin: 11/23/22 18:46 Dose: 1 each Polymyxin/Trimethoprim Sulfate (Polymyxin B-Trimethoprim Sulf (10,000-1) Ophth Drops 10 Ml Btl) 1 drops RIGHT EYE Q4HR STEVE Stop: 11/29/22 00:01 Last Admin: 11/23/22 20:07 Dose: 1 drops Senna/Docusate Sodium (Sennosides-Docusate Sodium 1 Each Tab) 2 each PO HS STEVE Stop: 12/21/22 21:01 Last Admin: 11/23/22 20:07 Dose: 2 each Sodium Biphosphate/Sodium Phosphate (Na Phos,M-B/Na Phos,Di-Ba 133 Ml Enema) 133 ml RECTAL DAILY PRN PRN Reason: Constipation Stop: 12/21/22 18:15 Physical exam: GENERAL: The patient is alert and oriented x3, not in any acute distress. Well developed, well nourished. HEENT: Pupils are round and equally reacting to light. EOMI. No scleral icterus. No conjunctival pallor. Normocephalic, atraumatic. No pharyngeal erythema. No thyromegaly. right eye: redness and watery discharge of the right eye, no loss of vision , no painful eye movement, no blurred vission , no double vision, crusting noted on exam CARDIOVASCULAR: S1 and S2 present. No murmurs, rubs, or gallops. PULMONARY: Chest is clear to auscultation, no wheezing or crackles. ABDOMEN: Soft, nontender, nondistended, normoactive bowel sounds. No palpable organomegaly. MUSCULOSKELETAL: No joint swelling or deformity. EXTREMITIES: No cyanosis, clubbing, or pedal edema. Right knee surgical wound dressing is dry and intact NEUROLOGICAL: Gross neurological examination did not reveal any focal deficits. SKIN: No rashes. no petechiae. Assessment: Right knee osteoarthritis status post total knee arthroplasty Right eye conjunctivitis without blurred vision History of GERD Hypertension Osteoarthritis Asthma, not in activation Morbid obesity with a BMI of 42.6 GI and DVT prophylaxis Full code Plan: Recommend to Continue with polymyxin trimethoprim antibiotic And close outpatient follow-up with ophthalmology as scheduled Monitor for any change in vision closely. Continue with postoperative care with pain an DVT prophylaxis as per surgery primary team. Patient is reporting increased pain in the knee and being closely monitored overnight for improved pain Prescription provided for eyedrop antibiotic and instructed to follow-up with them at scheduled appointment We will continue to monitor and follow closely with orthopedics during hospitalization. Thank you kindly for this consultation The impression and plan of care has been dictated by Shalini Balderrama, Nurse Practitioner as directed. Dr. Slick MD I have performed a history and examination and MDM of this patient, discussed the same with the dictator, and agree with the dictator's assessment and plan as written ,documented as a scribe. Based on total visit time, I have performed more than 50% of the visit. Objective - Vital Signs Vital signs: Vital Signs Temp 99.1 F 11/23/22 07:07 Pulse 71 11/23/22 07:07 Resp 16 11/23/22 07:07 BP 132/70 11/23/22 07:07 Pulse Ox 89 L 11/23/22 07:07 FiO2 Intake & Output 11/22/22 11/23/22 11/23/22 18:59 06:59 18:59 Other: Voiding Method Toilet Toilet # Voids 3 2 1 - Labs CBC & Chem 7: 11/22/22 06:57
[2022-11-24] MEDS: oxyCODONE-APAP 5-325MG 1 EACH TAB PO PRN ×3 (00:59→12:15)
[2022-11-24] MEDS: POLYMYXIN B-TRIMETHOPRIM SULF (10,000-1) OPHTH DROPS 10 ML BTL RIGHT EYE SCH ×3 (05:06→11:04)
--- NOTE | 2022-11-24 07:48 | P.PN ---
Subjective Progress Note Date: 11/24/22 Patient's pain is improved this morning. Her right eye is also improving. Objective - Vital Signs Vital signs: Vital Signs Temp 99.3 F 11/24/22 01:41 Pulse 65 11/24/22 01:41 Resp 16 11/24/22 01:41 BP 138/77 11/24/22 01:41 Pulse Ox 93 L 11/24/22 01:41 FiO2 Intake & Output 11/23/22 11/24/22 11/24/22 18:59 06:59 18:59 Other: # Voids 4 3 - Exam Patient is resting comfortably in her bed. Examination right leg shows moderate swelling throughout the thigh and calf. Thigh and calf are nontender. An incisional wound VAC is in place with good seal. Motor and sensory function are intact in the right foot. - Labs CBC & Chem 7: 11/22/22 06:57 Assessment and Plan Plan: Patient seems much better today. We will plan on discharging her home later today as long as her pain is controlled she passes therapy.
[2022-11-24 08:02] VITALS: RESP 17
[2022-11-24] MEDS: ASPIRIN 81 MG PO SCH (08:04)
[2022-11-24] MEDS: DOXYCYCLINE 100 MG CAP PO SCH (08:04)
--- NOTE | 2022-11-24 08:35 | P.PN ---
Subjective Progress Note Date: 11/24/22 This is a pleasant 52 years old female with multiple medical problems including GERD/Reflux, Hypertension, Osteoarthritis, Anxiety Patient was admitted for right knee arthroplasty. Patient also complaining of from redness and itchiness and watery discharge from her right eye with no blurred vision or double vision when I examined the patient, most likely patient has right eye conjunctivitis and patient was already started on polymyxin-trimethoprim antibiotic eyedrops. Recommend close monitoring for any vision changes or worsening pain. Patient currently denies any pain in the area. pt also would benefit from ophthalmologic exam , patient informed and she agrees. This can be done as an outpatient since patient is pain free and without blurred vision and she was informed if she develops any symptoms to see emergent medical attention and she agrees. Other than that she denies any chest pain or dyspnea, no abdominal pain or vomiting. No diarrhea. Patient does not have bowel movement. He The right knee pain is controlled. Patient. Vital signs stable and patient is afebrile. Blood pressure 106/65. cbc showing mild leukocytosis of 19.0 which could be explained by surgical stress effect. (11.3. 11/23/2022 Patient is seen in follow-up this morning status post right knee arthroplasty with orthopedics following closely. Patient is having some right eye drainage and noted crusting on exam and was started on Polytrim drops and will continue. Patient also having some increased right knee pain with difficulty managing pain at this time. Patient is afebrile denies chest pain or shortness of breath. No reports of nausea or vomiting and patient is tolerating diet. Patient does have follow-up appointment made with middleware developer in the outpatient setting for this week. Would recommend to continue with eyedrops to bilateral eyes and encouraged increased handwashing and avoiding Rubbing or scratching at the eye. 11/24/2022 Patient seen and evaluated in follow-up today status post right knee arthroplasty and held over for pain management. Patient also maintained on Polytrim eyedrops for right eye conjunctivitis and encouraged the patient to ke ep follow-up appointment with middleware developer outpatient for further evaluation. Patient having some improvement in pain and will be going home today. Recommend outpatient follow-up with primary care provider as well. Patient does have incentive spirometer and encourage the patient to take home and continue using at least 10 times every hour while awake. Patient okay to resume home medications with pain management and DVT prophylaxis per orthopedics. Patient is medically stable for discharge today. Review of systems: Constitutional: No reports of fatigue, fever, or chills Cardiovascular: No reports of chest pain or palpitations Respiratory: No reports of shortness of breath or cough GI: No reports of nausea, vomiting, or diarrhea : No reports of dysuria or retention Neurovascular: No reports of weakness or numbness All medications have been reviewed Active Medications Aspirin (Aspirin 81 Mg) 81 mg PO BID [facility] Stop: 12/21/22 21:01 Last Admin: 11/24/22 08:04 Dose: 81 mg Doxycycline Monohydrate (Doxycycline 100 Mg Cap) 100 mg PO BID [facility]; Protocol Last Admin: 11/24/22 08:04 Dose: 100 mg Hydromorphone HCl (Hydromorphone 0.5 Mg/0.5 Ml Syringe) 0.5 mg IVP Q3HR PRN PRN Reason: Pain Scale 4 to 6 Stop: 12/21/22 18:15 Last Admin: 11/23/22 12:42 Dose: 0.5 mg Hydromorphone HCl (Hydromorphone 1 Mg/Ml 1 Ml Syringe) 1 mg IVP Q3HR PRN PRN Reason: Pain Scale 7 to 10 Stop: 12/21/22 18:15 Last Admin: 11/23/22 03:11 Dose: 1 mg Hydromorphone HCl (Hydromorphone 0.5 Mg/0.5 Ml Syringe) 0.25 mg IVP Q3HR PRN PRN Reason: Pain Scale 1 to 3 Stop: 12/21/22 18:15 Lactated Ringer's (Lactated Ringers) 1,000 mls @ 20 mls/hr IV .Q24H [facility] Stop: 12/21/22 13:35 Last Admin: 11/23/22 15:54 Dose: Not Given Lidocaine HCl (Lidocaine 1% (10mg/Ml) For Iv Start) 0.1 ml INTRADERMA PER PROTOCOL PRN PRN Reason: IV Start Stop: 12/21/22 13:35 Magnesium Hydroxide (Magnesium Hydroxide 2,400 Mg/10 Ml Cup) 2,400 mg PO DAILY PRN PRN Reason: Constipation Stop: 12/21/22 18:15 Naloxone HCl (Naloxone 0.4 Mg/Ml 1 Ml Vial) 0.2 mg IV Q2M PRN PRN Reason: Opioid Reversal Stop: 12/21/22 18:15 Ondansetron HCl (Ondansetron 4 Mg/2 Ml Vial) 4 mg IVP Q8HR PRN PRN Reason: Nausea And Vomiting Stop: 12/21/22 18:15 Oxycodone/Acetaminophen (Oxycodone-Apap 5-325mg 1 Each Tab) 1 each PO Q6HR PRN PRN Reason: Pain Last Admin: 11/24/22 06:56 Dose: 1 each Polymyxin/Trimethoprim Sulfate (Polymyxin B-Trimethoprim Sulf (10,000-1) Ophth Drops 10 Ml Btl) 1 drops RIGHT EYE Q4HR [facility] Stop: 11/29/22 00:01 Last Admin: 11/24/22 08:04 Dose: 1 drops Senna/Docusate Sodium (Sennosides-Docusate Sodium 1 Each Tab) 2 each PO HS [facility] Stop: 12/21/22 21:01 Last Admin: 11/23/22 20:07 Dose: 2 each Sodium Biphosphate/Sodium Phosphate (Na Phos,M-B/Na Phos,Di-Ba 133 Ml Enema) 133 ml RECTAL DAILY PRN PRN Reason: Constipation Stop: 12/21/22 18:15 Physical exam: GENERAL: The patient is alert and oriented x3, not in any acute distress. Well developed, well nourished. HEENT: Pupils are round and equally reacting to light. EOMI. No scleral icterus. No conjunctival pallor. Normocephalic, atraumatic. No pharyngeal erythema. No thyromegaly. right eye: redness and watery discharge of the right eye, no loss of vision , no painful eye movement, no blurred vission , no double vision, crusting noted on exam CARDIOVASCULAR: S1 and S2 present. No murmurs, rubs, or gallops. PULMONARY: Chest is clear to auscultation, no wheezing or crackles. ABDOMEN: Soft, nontender, nondistended, normoactive bowel sounds. No palpable organomegaly. MUSCULOSKELETAL: No joint swelling or deformity. EXTREMITIES: No cyanosis, clubbing, or pedal edema. Right knee surgical wound dressing is dry and intact NEUROLOGICAL: Gross neurological examination did not reveal any focal deficits. SKIN: No rashes. no petechiae. Assessment: Right knee osteoarthritis status post total knee arthroplasty Right eye conjunctivitis without blurred vision History of GERD Hypertension Osteoarthritis Asthma, not in activation Morbid obesity with a BMI of 42.6 GI and DVT prophylaxis Full code Plan: Recommend to Continue with polymyxin trimethoprim antibiotic And close outpatient follow-up with ophthalmology as scheduled Monitor for any change in vision closely. Continue with postoperative care with pain an DVT prophylaxis as per surgery primary team. Patient having some improvement in pain and will be discharged today Prescription provided for eyedrop antibiotic and instructed to follow-up with ophthalmology at scheduled appointment this week We will continue to monitor and follow closely with orthopedics during hospitalization. Thank you kindly for this consultation Patient is medically stable for discharge today The impression and plan of care has been dictated by Shalini Balderrama, Nurse Practitioner as directed. Dr. Slick MD I have performed a history and examination and MDM of this patient, discussed the same with the dictator, and agree with the dictator's assessment and plan as written ,documented as a scribe. Based on total visit time, I have performed more than 50% of the visit. Objective - Vital Signs Vital signs: Vital Signs Temp 98.1 F 11/24/22 07:17 Pulse 68 11/24/22 07:17 Resp 17 11/24/22 07:17 BP 152/83 11/24/22 07:17 Pulse Ox 96 11/24/22 07:17 FiO2 Intake & Output 11/23/22 11/24/22 11/24/22 18:59 06:59 18:59 Other: Voiding Method Toilet # Voids 4 3 - Labs CBC & Chem 7: 11/22/22 06:57
--- NOTE | 2022-11-24 09:53 | P.PN ---
Progress Note - Text Progress Note Date: 11/24/22 This is a 52-year-old female who has been followed in our office by Dr. Aquino for continued complaints of right knee pain due to right knee osteoarthritis. Treatment options were discussed, and patient elected to undergo a right total knee arthroplasty. Patient was seen pre-operatively by Dr. Young and cleared for surgery. Patient underwent a right total knee arthroplasty on 11/21/[address] Aquino. The procedure was performed without complication or sequelae. The patient is doing fairly well postoperatively. Vital signs and labs are stable on postoperative day #3. Patient was examined bedside this morning. Patient states she is overall doing very well and the pain in the right knee is better-controlled. She has been ambulating with a walker with minimal assistance. Patient will work with physical therapy prior to discharge. Patient is comfortable being discharged home today. She states that her I pain is improved today.. On examination, the patient is sitting up in bed in no apparent distress. She is alert and orientated 3. On inspection of the right knee, there is a Prevena wound vac in place. Patient has good strength and ROM of the right ankle and toes. Motor and sensory function is intact of the right lower extremity. The dorsalis pedis pulse is easily palpable, the right lower extremity is warm and well perfused with brisk capillary refill. Calf is soft and non-tender to palpation. Patient is discharged home with home health care today in good condition, pending medical clearance. Patient will follow-up with Dr. Aquino in the office in 1 week for wound vac removal. Please see med rec for accurate list of discharge medication.
[2022-11-24 11:12] LABS: Basophils # (A) 0.05 X 10*3/uL (0.00-0.10); Basophils % (A) 0.4 %; Eosinophils # (A) 0.03 X 10*3/uL (0.04-0.35); Eosinophils % (A) 0.2 %; HCT 32.4 % (37.2-46.3); HGB 10.1 g/dL (12.0-15.0); Immature Grans, Automated 0.6 %; Lymphocytes # (A) 2.87 X 10*3/uL (0.90-5.00); Lymphocytes % (A) 23.9 %; MCH 29.4 pg (27.0-32.0); MCHC 31.2 g/dL (32.0-37.0); MCV 94.5 fL (80.0-97.0); Mean Platelet Volume 10.4 fL (9.5-12.2); Monocytes # (A) 0.68 X 10*3/uL (0.20-1.00); Monocytes % (A) 5.7 %; NRBC Per 100 WBC 0.2 /100 WBCS (0.0-0.0); Neutrophils # (A) 8.33 X 10*3/uL (1.80-7.70); Neutrophils % (A) 69.2 %; Platelet Count 239 X 10*3/uL (140-440); RBC 3.43 X 10*6/uL (4.10-5.20); RDW 15.6 % (11.5-14.5); WBC 12.03 X 10*3/uL (4.50-10.00)
[2022-11-24] MEDS: LACTATED RINGERS 1,000 ML IV SCH (11:36)
[2022-11-24 13:42] VITALS: BP 153/78; PULSE 91; TEMP 99.5
== END 2022-11-24 15:23 | disposition home health service (06) ==
LOC: OR 13:23 → 4SSUR 18:14 → OR 11-24 15:23
PROVIDERS: ATTEND Orthopaedic Surgery
DX: M17.11 Unilateral primary osteoarthritis, right knee (principal); G89.18 Other acute postprocedural pain; E66.01 Morbid (severe) obesity due to excess calories; F41.9 Anxiety disorder, unspecified; I10 Essential (primary) hypertension; J45.909 Unspecified asthma, uncomplicated; Z68.41 Body mass index [BMI] 40.0-44.9, adult; Z79.1 Long term (current) use of non-steroidal anti-inflammatories (NSAID); Z79.51 Long term (current) use of inhaled steroids; Z79.82 Long term (current) use of aspirin; Z79.899 Other long term (current) drug therapy; Z88.8 Allergy status to other drugs, medicaments and biological substances; Z96.651 Presence of right artificial knee joint
CPT/HCPCS: 94760 ×2; 97161; 64447; 81025; 64999; 76942; 85025 ×2; 73560; 27447; C1776; C1713; J2250; J1100; J0690 ×2; J2405; J1885; J1170 ×2

== ENCOUNTER → 2023-10-10 | Outpatient (CLI) | payer OTHER ==
--- NOTE | 2023-10-14 19:27 | MM ---
Reason for Exam: Screening (asymptomatic). Last mammogram was performed 1 year(s) and 1 month(s) ago. Patient History: Menarche at age 13. First Full-Term at age 19. Postmenopausal. Maternal grandmother had breast cancer, age 74. Risk Values: Bee 5 year model risk: 0.9%. NCI Lifetime model risk: 7.0%. Prior Study Comparison: 07/25/2018 Bilateral Screening Mammogram, [facility]. 09/06/2020 Bilateral Screening Mammogram, [facility]. 09/12/2022 Bilateral MG 3D screening mammo w/cad, [facility]. Tissue Density: There are scattered fibroglandular densities. Findings: Analyzed By CAD. Unchanged focal asymmetry right lower inner quadrant. There is no suspicious group of microcalcifications or new suspicious mass in either breast. Overall Assessment: Benign, BI-RAD 2 Management: Screening Mammogram of both breasts in 1 year. . Patient should continue monthly self-breast exams. A clinical breast exam by your physician is recommended on an annual basis. This exam should not preclude additional follow-up of suspicious palpable abnormalities. Note on Bee scores and lifetime risk: 1. A Bee score greater than 3% is considered moderate risk. If this is the case, consider specialist referral to assess eligibility for a risk reducing agent. 2. If overall lifetime risk for the development of breast cancer is 20% or higher, the patient may qualify for future screening with alternating mammogram and breast MRI. Electronically signed and approved by: Maddie Mott M.D. Radiologist
== END | disposition home or self-care (01) ==
LOC: RADMAMWWP 16:29
PROVIDERS: ATTEND Family Medicine
DX: Z12.31 Encounter for screening mammogram for malignant neoplasm of breast (principal); Z80.3 Family history of malignant neoplasm of breast; Z78.0 Asymptomatic menopausal state
CPT/HCPCS: 77063; 77067